=== PATIENT | female | born 1995 | race American Indian/Alaskan Native ===

== ENCOUNTER 2019-01-03 12:01 | Emergency (ER) | payer MEDICAID ==
--- NOTE | 2019-01-03 12:19 | Emergency Department Report ---
Blank Doc - Documentation Documentation: This is a 23 y.o. female that presents with N/V and 28 weeks . States other children in home are sick with similar symptoms. She reports vomiting every 10-15 minutes. Denies abdominal pain, back, pain, vaginal bleeding, or diarrhea. Ordered: Labs Fast track for further evaluation.
[2019-01-03 12:49] LABS: Bacteria,Urine 1+ /HPF (Negative); Bilirubin,Urine NEG (Negative); Blood,Urine NEG (Negative); Color,Urine Yellow (Yellow); Mucus,Urine 3+ /HPF; Urobilinogen,Urine < 2.0 mg/dL (<2.0)
[2019-01-03 14:14] LABS: Basophils % (Auto) 0.2 % (0.0-1.8); Hematocrit 32.7 % (30.3-42.9); Hemoglobin 11.2 gm/dl (10.1-14.3); Lymphocytes # (Auto) 1.1 K/mm3 (1.2-5.4); Lymphocytes % (Auto) 10.6 % (13.4-35.0); Mean Corpuscular HGB Conc 34 % (30-34); Mean Corpuscular Volume 87 fl (79-97); Monocytes # (Auto) 0.6 K/mm3 (0.0-0.8); Monocytes % (Auto) 5.7 % (0.0-7.3); Platelet Count 277 K/mm3 (140-440); Red Blood Count 3.75 M/mm3 (3.65-5.03); Red Cell Distribution Width 14.2 % (13.2-15.2)
[2019-01-03] MEDS ORDERED: NACL 0.9% 1000 ML 1,000 ML IV ONE (14:24)
[2019-01-03] MEDS ORDERED: ZOFRAN IV ONE (14:24)
[2019-01-03 14:34] LABS: Alanine Aminotransferase 12 units/L (7-56); Albumin 3.4 g/dL (3.9-5); BUN/Creatinine Ratio 20; Blood Urea Nitrogen 6 mg/dL (7-17); Calcium 8.9 mg/dL (8.4-10.2); Hemolysis Index 5
--- NOTE | 2019-01-03 15:47 | Emergency Department Report ---
ED N/V/D HPI - General Chief complaint: Nausea/Vomiting/Diarrhea Stated complaint: STOMACH VIRUS/28WKS PREG Time Seen by Provider: 01/03/19 12:15 Source: patient Mode of arrival: Ambulatory Limitations: No Limitations - History of Present Illness Initial comments: 23-year-old female, 28 weeks , presents to ED with nausea and vomiting since yesterday. Patient reports sick contacts at home. Patient denies abdominal pain, vaginal bleeding, fever. MD complaint: nausea, vomiting -: days(s) (1) Description of Vomiting: food contents, watery Associated Abdominal Pain: No Severity: moderate Improves with: none Worsens with: eating Context: sick contacts Associated Symptoms: nausea/vomiting. denies: fever/chills - Related Data Previous Rx's Medication Instructions Recorded Last Taken Type HYDROcodone/APAP 5-325 [Fowler 1 each PO QHS PRN #5 tablet 05/21/18 Unknown Rx 5-325 mg TAB] Promethazine [Phenergan TAB] 25 mg PO Q6HR PRN #20 tab 01/03/19 Unknown Rx Allergies Allergy/AdvReac Type Severity Reaction Status Date / Time No Known Allergies Allergy Verified 01/03/19 12:02 ED Review of Systems ROS: Stated complaint: STOMACH VIRUS/28WKS PREG Other details as noted in HPI Comment: All other systems reviewed and negative Constitutional: denies: chills, fever Gastrointestinal: nausea, vomiting. denies: abdominal pain, diarrhea ED Past Medical Hx - Past Medical History Hx Hypertension: No Hx Heart Attack/AMI: No Hx Seizures: No Hx Asthma: No (reactive airway, last used albuterol 2 years ago) Additional medical history: GALLSTONES - Surgical History Hx Cholecystectomy: Yes - Social History Smoking Status: Never Smoker - Medications Home Medications: Home Medications Medication Instructions Recorded Confirmed Last Taken Type HYDROcodone/APAP 5-325 [Fowler 1 each PO QHS PRN #5 tablet 05/21/18 Unknown Rx 5-325 mg TAB] Promethazine [Phenergan TAB] 25 mg PO Q6HR PRN #20 tab 01/03/19 Unknown Rx ED Physical Exam - General Limitations: No Limitations General appearance: alert, in no apparent distress - Head Head exam: Present: atraumatic, normocephalic - Eye Eye exam: Present: normal appearance - ENT ENT exam: Present: mucous membranes moist - Neck Neck exam: Present: normal inspection - Respiratory Respiratory exam: Present: normal lung sounds bilaterally. Absent: respiratory distress - Cardiovascular Cardiovascular Exam: Present: normal rhythm, tachycardia - GI/Abdominal GI/Abdominal exam: Present: soft, other (gravid abdomen). Absent: tenderness - Extremities Exam Extremities exam: Present: normal inspection - Neurological Exam Neurological exam: Present: alert, oriented X3 - Psychiatric Psychiatric exam: Present: normal affect, normal mood - Skin Skin exam: Present: warm, dry, intact, normal color ED Course Vital Signs 01/03/19 12:05 Temperature 97.6 F Pulse Rate 115 H Respiratory 18 Rate Blood Pressure 125/76 [Right] O2 Sat by Pulse 99 Oximetry ED Medical Decision Making - Lab Data Result diagrams: 01/03/19 13:26 01/03/19 13:26 - Differential Diagnosis gastroenteritis Critical care attestation.: If time is entered above; I have spent that time in minutes in the direct care of this critically ill patient, excluding procedure time. ED Disposition Clinical Impression: Nausea & vomiting Disposition: DC-01 TO HOME OR SELFCARE Is pt being admited?: No Condition: Stable Instructions: Acute Nausea and Vomiting (ED) Prescriptions: Promethazine [Phenergan TAB] 25 mg PO Q6HR PRN #20 tab PRN Reason: Nausea Referrals: PRIMARY CARE, [Referring] - 3-5 Days Time of Disposition: 15:47
[2019-01-03 16:22] VITALS: BP 121/76
== END 2019-01-03 16:20 | disposition home or self-care (01) ==
LOC: ED 12:01
DX: O26.893 Other specified pregnancy related conditions, third trimester (principal); O21.8 Other vomiting complicating pregnancy; R11.0 Nausea; Z3A.28 28 weeks gestation of pregnancy
CPT/HCPCS: 36415; 80053; 81001; 85025; 96361; 96374; 99283; J2405; J7030

== ENCOUNTER 2022-06-26 10:03 | Outpatient (CLI) | payer MEDICAID, OTHER ==
[2022-06-26] MEDS ORDERED: LACTATED RINGERS 500 ML IV ONE (10:35)
[2022-06-26 10:44] VITALS: BP 100/71
== END 2022-06-26 12:35 | disposition home or self-care (01) ==
LOC: TRG 10:03 → APU 10:04 → TRG 12:35
PROVIDERS: ATTEND Obstetrics & Gynecology
DX: O42.913 Preterm premature rupture of membranes, unspecified as to length of time between rupture and onset of labor, third trimester (principal); Z3A.34 34 weeks gestation of pregnancy
CPT/HCPCS: 36415; 59025; 84112

== ENCOUNTER 2022-08-07 12:30 | Outpatient (CLI) | payer OTHER ==
--- NOTE | 2022-08-07 15:22 | Ultrasound Report ---
ULTRASOUND OBSTETRIC LIMITED ULTRASOUND BIOPHYSICAL PROFILE INDICATION / CLINICAL INFORMATION: Presentation. Clinical Gestational Age (GA) in weeks, days: 40, 1 TECHNIQUE: Transabdominal. COMPARISON: None available. FINDINGS: BREATHING MOVEMENT = 2 GROSS BODY MOVEMENT = 2 TONE = 2 QUALITATIVE AMNIOTIC FLUID VOLUME = 2 TOTAL BIOPHYSICAL SCORE = 8/8 HEART RATE (beats per minute): 138 AMNIOTIC FLUID INDEX (cm) = 21.2 (normal = 7-24 cm) PRESENTATION: Cephalic. ADDITIONAL FINDINGS: None. IMPRESSION: 1. Biophysical Score = 8/8 Signer Name: Breezy Odom DO Signed: 08/07/2022 3:17 PM Workstation Name: [id number]
== END 2022-08-07 15:38 | disposition home or self-care (01) ==
LOC: TRG 12:30 → APU 13:49 → TRG 15:38
PROVIDERS: ATTEND Obstetrics & Gynecology Gynecology
DX: O26.893 Other specified pregnancy related conditions, third trimester (principal); R10.9 Unspecified abdominal pain; Z3A.40 40 weeks gestation of pregnancy
CPT/HCPCS: 59025; 76815; 76819